=== PATIENT | female | born 1945 | race Caucasian/White ===

== ENCOUNTER 2017-08-03 11:57 | Inpatient (IN) | payer MEDICARE, BC ==
[~2017-08-03 11:57] MED LIST: ETOMIDATE 20 MG INJ; ROCURONIUM 50 MG INJ
[2017-08-03] MEDS: SOD CHLORIDE 0.9% 1,000 ML IV ×2 (12:25→18:20)
[2017-08-03 12:39] LABS: ADD MAN DIFF? NO
[2017-08-03 12:41] LABS: BASOPHIL # 0.1 10^3/ul (0.0-0.1); BASOPHILS % 0.6 % (0.0-2.0); EOSINOPHILS % 0.2 % (0.0-7.0); HEMATOCRIT 40.4 % (37.0-47.0); HEMOGLOBIN 13.4 g/dl (12.0-16.0); LYMPHOCYTES % 35.5 % (15.0-51.0); MEAN CORPUSCULAR HEMOGLOBIN 32.3 pg (29.0-33.0); MEAN CORPUSCULAR HGB CONC 33.2 g/dl (32.0-37.0); MEAN CORPUSCULAR VOLUME 97.3 fl (82.0-101.0); MEAN PLATELET VOLUME 9.8 fl (7.4-10.4); MONOCYTE # 0.6 10^3/ul (0.3-0.9); MONOCYTES % 7.3 % (0.0-11.0); NEUTROPHIL # 4.8 10^3/ul (1.6-7.5); NEUTROPHILS % 56.2 % (39.0-77.0); PLATELET COUNT 300 10^3/UL (140-415); RED BLOOD COUNT 4.15 10^6/ul (4.20-5.40); RED CELL DISTRIBUTION WIDTH 13.3 % (11.5-14.5)
[2017-08-03 12:41] LABS: WHITE BLOOD COUNT 8.5 10^3/ul (4.8-10.8)
[2017-08-03 13:05] LABS: ALANINE AMINOTRANSFERASE 19 IU/L (13-69); ALBUMIN 3.8 g/dl (3.3-4.9); ALBUMIN/GLOBULIN RATIO 1.31; ALKALINE PHOSPHATASE 53 IU/L (42-121); ANION GAP 16 (8-16); ASPARTATE AMINO TRANSFERASE 24 IU/L (15-46); BILIRUBIN,INDIRECT 0.4 mg/dl (0-1.1); BILIRUBIN,TOTAL 0.4 mg/dl (0.2-1.3); BLOOD UREA NITROGEN 19 mg/dl (7-20); CALCIUM 9.2 mg/dl (8.4-10.2); CARBON DIOXIDE 26 mmol/L (21-31); CHLORIDE 103 mmol/L (97-110); CREATININE 0.97 mg/dl (0.44-1.00); GLUCOSE 128 mg/dl (70-220); POTASSIUM 4.3 mmol/L (3.5-5.1); SODIUM 141 mmol/L (135-144); TOTAL PROTEIN 6.7 g/dl (6.1-8.1)
[2017-08-03 13:06] LABS: ACETAMINOPHEN < 10.0 ug/ml (10.0-30.0); ETHANOL < 10.0 mg/dl; SALICYLATE < 1.0 mg/dl (5.0-30.0)
[2017-08-03 13:14] LABS: ADD UMIC NO; UR ASCORBIC ACID NEGATIVE (NEGATIVE); UR BILIRUBIN (Dip) 2+ mg/dL (NEGATIVE); UR BLOOD (Dip) NEGATIVE (NEGATIVE); UR CLARITY CLEAR (CLEAR); UR COLOR YELLOW (YELLOW); UR GLUCOSE (Dip) NEGATIVE (NEGATIVE); UR KETONES (Dip) TRACE mg/dL (NEGATIVE); UR LEUKOCYTE ESTERASE (Dip) NEGATIVE Leu/ul (NEGATIVE); UR NITRITE (Dip) NEGATIVE (NEGATIVE); UR SPECIFIC GRAVITY (Dip) 1.023 (1.003-1.030); UR TOTAL PROTEIN (Dip) NEGATIVE (NEGATIVE); UR UROBILINOGEN (Dip) NEGATIVE (NEGATIVE)
[2017-08-03 13:16] LABS: TROPONIN-I < 0.012 ng/ml (0.000-0.120)
[2017-08-03 13:44] LABS: AMPHETAMINE/METHAMPHETAMINE Negative (NEGATIVE)
[2017-08-03 13:45] LABS: BARBITURATES Negative (NEGATIVE); BENZODIAZEPINES Positive (NEGATIVE); CANNABINOIDS Negative (NEGATIVE); COCAINE Negative (NEGATIVE); OPIATES Positive (NEGATIVE)
[2017-08-03] MEDS: NALOXONE (0.4 MG/ML) INJ IV ×3 (13:54→18:34)
[2017-08-03] MEDS ORDERED: ACETAMINOPHEN 325 MG TAB PO (14:00)
[2017-08-03] MEDS ORDERED: ONDANSETRON 4 MG INJ IV (14:00)
[2017-08-03] MEDS ORDERED: NACL 0.9% 3 ML SYG IV (16:00)
[2017-08-03] MEDS: SOD CHLORIDE 0.45% 1,000 ML IV (16:27)
[2017-08-03 17:48] LABS: Allen Test ACCEPTAB; Arterial Base Excess -5.3 mmol/L (-3.0-3); Arterial COHb 0.7 % (0.0-3.0); Arterial Fraction of Oxyhgb 80.3 % (93.0-99.0); Arterial HCO3 23.7 mmol/L (22.0-26.0); Arterial MetHb 0.2 % (0.0-1.5); Arterial Total Hemglobin 14.2 g/dl (12.0-18.0); Arterial pCO2 61.7 mmhg (35-45); MODE MASK - NRB; Site Left Radial
[2017-08-03] MEDS: IPRATROPIUM (NEB) 0.5 MG/2.5 ML AMP HHN (18:14)
[2017-08-03] MEDS: ALBUTEROL 0.083% (NEB) 2.5 MG/3 ML AMP HHN (18:14)
[2017-08-03] MEDS: ONDANSETRON 4 MG INJ IV (18:16)
[2017-08-03 19:15] LABS: ACETAMINOPHEN < 10.0 ug/ml (10.0-30.0)
[2017-08-03 19:15] LABS: ETHANOL < 10.0 mg/dl; SALICYLATE < 1.0 mg/dl (5.0-30.0)
[2017-08-03] MEDS: PROPOFOL 100 ML IV ×2 (20:00→21:30)
[2017-08-03] MEDS ORDERED: hydrALAzine 20 MG INJ IV (20:00)
[2017-08-03 20:52] LABS: AADO2 Arterial 525.9 mmHg (7.0-24.0); Allen Test ACCEPTAB; Arterial Base Excess -3.7 mmol/L (-3.0-3); Arterial Blood Gas Oxygen Sat 98.9 mmHG (95.0-100.0); Arterial COHb 0.2 % (0.0-3.0); Arterial Fraction of Oxyhgb 98.5 % (93.0-99.0); Arterial HCO3 20.8 mmol/L (22.0-26.0); Arterial MetHb 0.2 % (0.0-1.5); Arterial Total Hemglobin 14.6 g/dl (12.0-18.0); Arterial pCO2 36.1 mmhg (35-45); MODE VENT - AC; Site Right Radial
[2017-08-04] MEDS: SOD CHLORIDE 0.45% 1,000 ML IV ×2 (05:13→18:56)
[2017-08-04 05:16] LABS: ADD MAN DIFF? NO
[2017-08-04 05:42] LABS: ALBUMIN 3.2 g/dl (3.3-4.9); ALBUMIN/GLOBULIN RATIO 1.23; ALKALINE PHOSPHATASE 46 IU/L (42-121); ANION GAP 14 (8-16); ASPARTATE AMINO TRANSFERASE 23 IU/L (15-46); BILIRUBIN,INDIRECT 0.5 mg/dl (0-1.1); BILIRUBIN,TOTAL 0.5 mg/dl (0.2-1.3); CARBON DIOXIDE 24 mmol/L (21-31); CHLORIDE 107 mmol/L (97-110); CREATININE 1.06 mg/dl (0.44-1.00); POTASSIUM 3.9 mmol/L (3.5-5.1); SODIUM 141 mmol/L (135-144); TOTAL PROTEIN 5.8 g/dl (6.1-8.1)
[2017-08-04 06:12] LABS: ALANINE AMINOTRANSFERASE 22 IU/L (13-69); BLOOD UREA NITROGEN 20 mg/dl (7-20); GLUCOSE 129 mg/dl (70-220)
[2017-08-04 06:15] LABS: WHITE BLOOD COUNT 14.8 10^3/ul (4.8-10.8)
[2017-08-04 06:15] LABS: BASOPHILS % 0.2 % (0.0-2.0); HEMATOCRIT 36.5 % (37.0-47.0); HEMOGLOBIN 12.3 g/dl (12.0-16.0); LYMPHOCYTES % 20.1 % (15.0-51.0); MEAN CORPUSCULAR HEMOGLOBIN 32.6 pg (29.0-33.0); MEAN CORPUSCULAR HGB CONC 33.7 g/dl (32.0-37.0); MEAN CORPUSCULAR VOLUME 96.8 fl (82.0-101.0); MEAN PLATELET VOLUME 9.9 fl (7.4-10.4); MONOCYTE # 0.7 10^3/ul (0.3-0.9); MONOCYTES % 4.8 % (0.0-11.0); NEUTROPHILS % 74.6 % (39.0-77.0); PLATELET COUNT 246 10^3/UL (140-415); RED BLOOD COUNT 3.77 10^6/ul (4.20-5.40); RED CELL DISTRIBUTION WIDTH 13.4 % (11.5-14.5)
[2017-08-04] MEDS: PROPOFOL 100 ML IV ×2 (08:00→20:00)
[2017-08-04] MEDS: ENOXAPARIN 30 MG/0.3 ML SYG SC (08:13)
[2017-08-04] MEDS ORDERED: DIPHENHYDRAMINE 50 MG INJ IV (08:30)
[2017-08-04] MEDS: PIPER-TAZO 3.375 GM IV (PMX) 100 ML IVPB ×3 (08:45→22:29)
[2017-08-05] MEDS: PROPOFOL 100 ML IV (03:26)
[2017-08-05 05:31] LABS: ADD MAN DIFF? NO
[2017-08-05 05:41] LABS: BASOPHILS % 0.2 % (0.0-2.0); EOSINOPHILS % 0.1 % (0.0-7.0); HEMATOCRIT 35.4 % (37.0-47.0); HEMOGLOBIN 11.8 g/dl (12.0-16.0); LYMPHOCYTES # 2.4 10^3/ul (0.8-2.9); LYMPHOCYTES % 16.3 % (15.0-51.0); MEAN CORPUSCULAR HEMOGLOBIN 32.5 pg (29.0-33.0); MEAN CORPUSCULAR HGB CONC 33.3 g/dl (32.0-37.0); MEAN CORPUSCULAR VOLUME 97.5 fl (82.0-101.0); MONOCYTE # 1.2 10^3/ul (0.3-0.9); MONOCYTES % 8.2 % (0.0-11.0); NEUTROPHIL # 11.1 10^3/ul (1.6-7.5); NEUTROPHILS % 74.5 % (39.0-77.0); PLATELET COUNT 227 10^3/UL (140-415); RED BLOOD COUNT 3.63 10^6/ul (4.20-5.40); RED CELL DISTRIBUTION WIDTH 13.7 % (11.5-14.5)
[2017-08-05 05:41] LABS: WHITE BLOOD COUNT 14.9 10^3/ul (4.8-10.8)
[2017-08-05 06:11] LABS: ANION GAP 9 (8-16); BLOOD UREA NITROGEN 20 mg/dl (7-20); CALCIUM 8.1 mg/dl (8.4-10.2); CARBON DIOXIDE 28 mmol/L (21-31); CHLORIDE 107 mmol/L (97-110); CREATININE 0.96 mg/dl (0.44-1.00); GLUCOSE 115 mg/dl (70-220); MAGNESIUM 2.3 mg/dl (1.7-2.5); PHOSPHORUS 2.5 mg/dl (2.5-4.9); POTASSIUM 3.4 mmol/L (3.5-5.1); SODIUM 141 mmol/L (135-144)
[2017-08-05] MEDS: PIPER-TAZO 3.375 GM IV (PMX) 100 ML IVPB ×3 (06:31→22:23)
[2017-08-05] MEDS: SOD CHLORIDE 0.45% 1,000 ML IV (08:00)
[2017-08-05] MEDS: ENOXAPARIN 30 MG/0.3 ML SYG SC (08:03)
[2017-08-05 11:07] LABS: AADO2 Arterial 97.1 mmHg (7.0-24.0); Allen Test ACCEPTAB; Arterial Base Excess -0.1 mmol/L (-3.0-3); Arterial Blood Gas Oxygen Sat 94.3 mmHG (95.0-100.0); Arterial COHb 0.3 % (0.0-3.0); Arterial Fraction of Oxyhgb 93.9 % (93.0-99.0); Arterial HCO3 24.5 mmol/L (22.0-26.0); Arterial MetHb 0.1 % (0.0-1.5); Arterial Total Hemglobin 12.7 g/dl (12.0-18.0); Arterial pCO2 39.9 mmhg (35-45); Blood Gas PS 10; MODE VENT - CPAP; Site Right Radial
[2017-08-05] MEDS: NS + KCL 20 MEQ 1,000 ML IV ×2 (13:44→22:23)
[2017-08-05] MEDS ORDERED: VITAMIN A & D 5 GM OINT PACKET TOP (19:40)
[2017-08-06 05:52] LABS: ADD MAN DIFF? NO
[2017-08-06 05:55] LABS: BASOPHILS % 0.2 % (0.0-2.0); EOSINOPHILS # 0.1 10^3/ul (0.0-0.5); EOSINOPHILS % 0.5 % (0.0-7.0); HEMATOCRIT 31.6 % (37.0-47.0); HEMOGLOBIN 10.5 g/dl (12.0-16.0); LYMPHOCYTES # 2.9 10^3/ul (0.8-2.9); LYMPHOCYTES % 21.8 % (15.0-51.0); MEAN CORPUSCULAR HEMOGLOBIN 32.6 pg (29.0-33.0); MEAN CORPUSCULAR HGB CONC 33.2 g/dl (32.0-37.0); MEAN CORPUSCULAR VOLUME 98.1 fl (82.0-101.0); MEAN PLATELET VOLUME 10.1 fl (7.4-10.4); MONOCYTES % 7.7 % (0.0-11.0); NEUTROPHIL # 9.2 10^3/ul (1.6-7.5); NEUTROPHILS % 69.2 % (39.0-77.0); PLATELET COUNT 206 10^3/UL (140-415); RED BLOOD COUNT 3.22 10^6/ul (4.20-5.40); RED CELL DISTRIBUTION WIDTH 13.6 % (11.5-14.5)
[2017-08-06 05:55] LABS: WHITE BLOOD COUNT 13.3 10^3/ul (4.8-10.8)
[2017-08-06] MEDS: PIPER-TAZO 3.375 GM IV (PMX) 100 ML IVPB (05:56)
[2017-08-06 06:17] LABS: ANION GAP 14 (8-16); BLOOD UREA NITROGEN 13 mg/dl (7-20); CALCIUM 7.9 mg/dl (8.4-10.2); CARBON DIOXIDE 23 mmol/L (21-31); CHLORIDE 112 mmol/L (97-110); CREATININE 0.71 mg/dl (0.44-1.00); GLUCOSE 90 mg/dl (70-220); MAGNESIUM 2.6 mg/dl (1.7-2.5); PHOSPHORUS 1.8 mg/dl (2.5-4.9); POTASSIUM 3.6 mmol/L (3.5-5.1); SODIUM 145 mmol/L (135-144)
[2017-08-06] MEDS: ENOXAPARIN 30 MG/0.3 ML SYG SC (08:50)
[2017-08-06] MEDS: POTASSIUM PHOSPHATE 40 MEQ in SOD CHLORIDE 0.9% 250 ML IVPB (09:30)
[2017-08-06] MEDS: SUCRALFATE 1 GM TAB PO (12:58)
[2017-08-06] MEDS: PANTOPRAZOLE (EC) 40 MG TAB PO (12:58)
[2017-08-06] MEDS: CALCIUM CARBONATE 500 MG CHEW TAB PO ×2 (12:58→18:42)
[2017-08-06] MEDS: BUPROPION (SR) 100 MG TAB PO (18:42)
[2017-08-06] MEDS: SENNA TAB PO (20:19)
[2017-08-06] MEDS: DOCUSATE SODIUM 100 MG CAP PO (20:19)
[2017-08-06] MEDS: ATORVASTATIN 10 MG TAB PO (20:19)
[2017-08-06] MEDS: CALCIUM/VITAMIN D (500/200) TAB PO (20:19)
[2017-08-06] MEDS: LORAZEPAM 1 MG TAB PO (20:25)
[2017-08-07] MEDS ORDERED: VITAMIN A & D 5 GM OINT PACKET TOP (00:35)
[2017-08-07 06:03] LABS: ADD MAN DIFF? NO
[2017-08-07 06:06] LABS: WHITE BLOOD COUNT 9.8 10^3/ul (4.8-10.8)
[2017-08-07 06:06] LABS: BASOPHILS % 0.3 % (0.0-2.0); EOSINOPHILS # 0.2 10^3/ul (0.0-0.5); EOSINOPHILS % 1.6 % (0.0-7.0); HEMATOCRIT 32.7 % (37.0-47.0); LYMPHOCYTES # 3.1 10^3/ul (0.8-2.9); LYMPHOCYTES % 32.1 % (15.0-51.0); MEAN CORPUSCULAR HEMOGLOBIN 32.2 pg (29.0-33.0); MEAN CORPUSCULAR HGB CONC 33.6 g/dl (32.0-37.0); MEAN CORPUSCULAR VOLUME 95.6 fl (82.0-101.0); MONOCYTE # 1.1 10^3/ul (0.3-0.9); MONOCYTES % 10.7 % (0.0-11.0); NEUTROPHIL # 5.4 10^3/ul (1.6-7.5); NEUTROPHILS % 54.9 % (39.0-77.0); PLATELET COUNT 222 10^3/UL (140-415); RED BLOOD COUNT 3.42 10^6/ul (4.20-5.40); RED CELL DISTRIBUTION WIDTH 13.5 % (11.5-14.5)
[2017-08-07 06:32] LABS: ANION GAP 12 (8-16); BLOOD UREA NITROGEN 8 mg/dl (7-20); CALCIUM 8.6 mg/dl (8.4-10.2); CARBON DIOXIDE 26 mmol/L (21-31); CHLORIDE 108 mmol/L (97-110); CREATININE 0.64 mg/dl (0.44-1.00); GLUCOSE 100 mg/dl (70-220); MAGNESIUM 2.2 mg/dl (1.7-2.5); PHOSPHORUS 2.6 mg/dl (2.5-4.9); POTASSIUM 3.7 mmol/L (3.5-5.1); SODIUM 142 mmol/L (135-144)
[2017-08-07] MEDS: PANTOPRAZOLE (EC) 40 MG TAB PO (06:54)
[2017-08-07] MEDS ORDERED: NON-FORMULARY/PATIENT OWN MED (Dexlansoprazole (Dexilant) 60 MG) PO (09:00)
[2017-08-07] MEDS ORDERED: NON-FORMULARY/PATIENT OWN MED (Linaclotide (Linzess) 290 MCG) PO (09:00)
[2017-08-07] MEDS: CHOLECALCIFEROL 2,000 UNIT CAP PO (09:08)
[2017-08-07] MEDS: DOCUSATE SODIUM 100 MG CAP PO ×2 (09:08→20:18)
[2017-08-07] MEDS: MULTIVITAMINS THERAPEUTIC TAB PO (09:08)
[2017-08-07] MEDS: ASPIRIN (EC) 81 MG TAB PO (09:09)
[2017-08-07] MEDS: CALCIUM/VITAMIN D (500/200) TAB PO ×2 (09:09→20:18)
[2017-08-07] MEDS: SENNA TAB PO ×2 (09:09→20:18)
[2017-08-07] MEDS: CALCIUM CARBONATE 500 MG CHEW TAB PO ×3 (09:09→18:41)
[2017-08-07] MEDS: BUPROPION (SR) 100 MG TAB PO (09:09)
[2017-08-07] MEDS: BENAZEPRIL 40 MG TAB PO (09:10)
[2017-08-07] MEDS: AMLODIPINE 10 MG TAB PO (09:11)
[2017-08-07] MEDS: ENOXAPARIN 30 MG/0.3 ML SYG SC (09:14)
[2017-08-07] MEDS: CLOPIDOGREL 75 MG TAB PO (09:22)
[2017-08-07] MEDS: [UNRECOGNIZED DRUG - REMARK] XX ×2 (13:30→21:02)
[2017-08-07] MEDS: GUAIFENESIN/DM 5ML CUP PO (18:39)
[2017-08-07] MEDS: ATORVASTATIN 10 MG TAB PO (20:18)
[2017-08-07] MEDS: LORAZEPAM 1 MG TAB PO (22:15)
[2017-08-08] MEDS: [UNRECOGNIZED DRUG - REMARK] XX (05:30)
[2017-08-08] MEDS: PANTOPRAZOLE (EC) 40 MG TAB PO (06:02)
[2017-08-08] MEDS: CALCIUM/VITAMIN D (500/200) TAB PO ×2 (08:37→20:23)
[2017-08-08] MEDS: CALCIUM CARBONATE 500 MG CHEW TAB PO ×3 (08:37→19:55)
[2017-08-08] MEDS: ENOXAPARIN 30 MG/0.3 ML SYG SC (08:37)
[2017-08-08] MEDS: DOCUSATE SODIUM 100 MG CAP PO ×2 (08:38→20:23)
[2017-08-08] MEDS: BUPROPION (SR) 100 MG TAB PO (08:38)
[2017-08-08] MEDS: MULTIVITAMINS THERAPEUTIC TAB PO (08:38)
[2017-08-08] MEDS: CLOPIDOGREL 75 MG TAB PO (08:38)
[2017-08-08] MEDS: ASPIRIN (EC) 81 MG TAB PO (08:39)
[2017-08-08] MEDS: CHOLECALCIFEROL 2,000 UNIT CAP PO (08:39)
[2017-08-08] MEDS: SENNA TAB PO ×2 (08:39→20:23)
[2017-08-08] MEDS: AMLODIPINE 10 MG TAB PO (08:39)
[2017-08-08] MEDS: BENAZEPRIL 40 MG TAB PO (08:40)
[2017-08-08] MEDS: GUAIFENESIN/DM 5ML CUP PO ×3 (09:17→21:44)
[2017-08-08] MEDS: ATORVASTATIN 10 MG TAB PO (20:23)
[2017-08-08] MEDS: LORAZEPAM 1 MG TAB PO (21:44)
[2017-08-09] MEDS ORDERED: ALBUTEROL 0.083% (NEB) 2.5 MG/3 ML AMP HHN
[2017-08-09] MEDS: ALBUTEROL 0.083% (NEB) 2.5 MG/3 ML AMP HHN ×4 (01:51→20:06)
[2017-08-09] MEDS: PANTOPRAZOLE (EC) 40 MG TAB PO (05:42)
[2017-08-09] MEDS: DOCUSATE SODIUM 100 MG CAP PO ×2 (10:32→20:51)
[2017-08-09] MEDS: CALCIUM CARBONATE 500 MG CHEW TAB PO ×3 (10:33→18:46)
[2017-08-09] MEDS: CLOPIDOGREL 75 MG TAB PO (10:33)
[2017-08-09] MEDS: CALCIUM/VITAMIN D (500/200) TAB PO ×2 (10:33→20:51)
[2017-08-09] MEDS: BUPROPION (SR) 100 MG TAB PO (10:33)
[2017-08-09] MEDS: SENNA TAB PO ×2 (10:34→20:51)
[2017-08-09] MEDS: MULTIVITAMINS THERAPEUTIC TAB PO (10:34)
[2017-08-09] MEDS: ASPIRIN (EC) 81 MG TAB PO (10:34)
[2017-08-09] MEDS: BENAZEPRIL 40 MG TAB PO (10:34)
[2017-08-09] MEDS: AMLODIPINE 10 MG TAB PO (10:36)
[2017-08-09] MEDS: ENOXAPARIN 30 MG/0.3 ML SYG SC (10:37)
[2017-08-09] MEDS: CHOLECALCIFEROL 2,000 UNIT CAP PO (10:43)
[2017-08-09] MEDS: ATORVASTATIN 10 MG TAB PO (20:51)
[2017-08-09] MEDS: LORAZEPAM 1 MG TAB PO (21:51)
[2017-08-10] MEDS: ALBUTEROL 0.083% (NEB) 2.5 MG/3 ML AMP HHN ×4 (03:10→20:09)
[2017-08-10] MEDS: PANTOPRAZOLE (EC) 40 MG TAB PO (06:43)
[2017-08-10] MEDS: BUPROPION (SR) 100 MG TAB PO (08:47)
[2017-08-10] MEDS: CALCIUM CARBONATE 500 MG CHEW TAB PO ×3 (08:47→17:50)
[2017-08-10] MEDS: CALCIUM/VITAMIN D (500/200) TAB PO ×2 (08:47→20:30)
[2017-08-10] MEDS: CHOLECALCIFEROL 2,000 UNIT CAP PO (08:48)
[2017-08-10] MEDS: DOCUSATE SODIUM 100 MG CAP PO ×2 (08:48→20:31)
[2017-08-10] MEDS: MULTIVITAMINS THERAPEUTIC TAB PO (08:48)
[2017-08-10] MEDS: SENNA TAB PO ×2 (08:48→20:31)
[2017-08-10] MEDS: BENAZEPRIL 40 MG TAB PO (08:48)
[2017-08-10] MEDS: ASPIRIN (EC) 81 MG TAB PO (08:48)
[2017-08-10] MEDS: AMLODIPINE 10 MG TAB PO (08:49)
[2017-08-10] MEDS: CLOPIDOGREL 75 MG TAB PO (08:49)
[2017-08-10] MEDS: ENOXAPARIN 30 MG/0.3 ML SYG SC (08:50)
[2017-08-10] MEDS: ATORVASTATIN 10 MG TAB PO (20:31)
[2017-08-10] MEDS: LORAZEPAM 1 MG TAB PO (22:16)
[2017-08-11] MEDS: ALBUTEROL 0.083% (NEB) 2.5 MG/3 ML AMP HHN ×4 (01:48→20:09)
[2017-08-11 05:35] LABS: AADO2 Arterial 50.2 mmHg (7.0-24.0); Arterial Base Excess 8.2 mmol/L (-3.0-3); Arterial Blood Gas Oxygen Sat 85.2 mmHG (95.0-100.0); Arterial COHb 0.7 % (0.0-3.0); Arterial Fraction of Oxyhgb 84.4 % (93.0-99.0); Arterial HCO3 32.4 mmol/L (22.0-26.0); Arterial MetHb 0.2 % (0.0-1.5); Arterial Total Hemglobin 13.8 g/dl (12.0-18.0); Arterial pCO2 43.4 mmhg (35-45); MODE ROOM AIR; Site LB
[2017-08-11 05:36] LABS: ADD MAN DIFF? NO
[2017-08-11 05:54] LABS: BASOPHILS % 0.2 % (0.0-2.0); EOSINOPHILS # 0.1 10^3/ul (0.0-0.5); EOSINOPHILS % 1.1 % (0.0-7.0); HEMATOCRIT 33.2 % (37.0-47.0); HEMOGLOBIN 11.2 g/dl (12.0-16.0); LYMPHOCYTES # 3.3 10^3/ul (0.8-2.9); LYMPHOCYTES % 37.4 % (15.0-51.0); MEAN CORPUSCULAR HEMOGLOBIN 32.7 pg (29.0-33.0); MEAN CORPUSCULAR HGB CONC 33.7 g/dl (32.0-37.0); MEAN CORPUSCULAR VOLUME 97.1 fl (82.0-101.0); MEAN PLATELET VOLUME 9.7 fl (7.4-10.4); MONOCYTE # 0.9 10^3/ul (0.3-0.9); MONOCYTES % 9.7 % (0.0-11.0); NEUTROPHIL # 4.5 10^3/ul (1.6-7.5); NEUTROPHILS % 51.1 % (39.0-77.0); PLATELET COUNT 305 10^3/UL (140-415); RED BLOOD COUNT 3.42 10^6/ul (4.20-5.40); RED CELL DISTRIBUTION WIDTH 13.4 % (11.5-14.5)
[2017-08-11 05:54] LABS: WHITE BLOOD COUNT 8.8 10^3/ul (4.8-10.8)
[2017-08-11 06:16] LABS: ANION GAP 10 (8-16); BLOOD UREA NITROGEN 7 mg/dl (7-20); CALCIUM 9.3 mg/dl (8.4-10.2); CARBON DIOXIDE 33 mmol/L (21-31); CHLORIDE 101 mmol/L (97-110); CREATININE 0.71 mg/dl (0.44-1.00); GLUCOSE 108 mg/dl (70-220); MAGNESIUM 1.7 mg/dl (1.7-2.5); POTASSIUM 3.1 mmol/L (3.5-5.1); SODIUM 141 mmol/L (135-144)
[2017-08-11] MEDS: PANTOPRAZOLE (EC) 40 MG TAB PO (06:43)
[2017-08-11] MEDS: AMLODIPINE 10 MG TAB PO (09:42)
[2017-08-11] MEDS: SENNA TAB PO ×2 (09:43→20:40)
[2017-08-11] MEDS: ASPIRIN (EC) 81 MG TAB PO (09:43)
[2017-08-11] MEDS: CALCIUM CARBONATE 500 MG CHEW TAB PO ×3 (09:43→17:58)
[2017-08-11] MEDS: MULTIVITAMINS THERAPEUTIC TAB PO (09:43)
[2017-08-11] MEDS: BENAZEPRIL 40 MG TAB PO (09:43)
[2017-08-11] MEDS: CHOLECALCIFEROL 2,000 UNIT CAP PO (09:43)
[2017-08-11] MEDS: CLOPIDOGREL 75 MG TAB PO (09:43)
[2017-08-11] MEDS: BUPROPION (SR) 100 MG TAB PO (09:43)
[2017-08-11] MEDS: CALCIUM/VITAMIN D (500/200) TAB PO ×2 (09:43→20:40)
[2017-08-11] MEDS: DOCUSATE SODIUM 100 MG CAP PO ×2 (09:43→20:40)
[2017-08-11] MEDS: ENOXAPARIN 30 MG/0.3 ML SYG SC (09:45)
[2017-08-11] MEDS: POTASSIUM CHLORIDE (SR) 20 MEQ TAB PO (16:22)
[2017-08-11] MEDS: FUROSEMIDE 20 MG INJ IV (16:22)
[2017-08-11] MEDS: ATORVASTATIN 10 MG TAB PO (20:40)
[2017-08-11] MEDS: LORAZEPAM 1 MG TAB PO (22:08)
[2017-08-12] MEDS: ALBUTEROL 0.083% (NEB) 2.5 MG/3 ML AMP HHN ×4 (01:58→20:11)
[2017-08-12] MEDS: PANTOPRAZOLE (EC) 40 MG TAB PO (05:40)
[2017-08-12 06:49] LABS: ANION GAP 8 (8-16); BLOOD UREA NITROGEN 8 mg/dl (7-20); CALCIUM 9.7 mg/dl (8.4-10.2); CARBON DIOXIDE 36 mmol/L (21-31); CHLORIDE 100 mmol/L (97-110); CREATININE 0.77 mg/dl (0.44-1.00); GLUCOSE 105 mg/dl (70-220); POTASSIUM 3.4 mmol/L (3.5-5.1); SODIUM 141 mmol/L (135-144)
[2017-08-12 07:51] LABS: Arterial Base Excess 8.2 mmol/L (-3.0-3); Arterial Blood Gas Oxygen Sat 93.9 mmHG (95.0-100.0); Arterial COHb 0.1 % (0.0-3.0); Arterial Fraction of Oxyhgb 93.7 % (93.0-99.0); Arterial MetHb 0.1 % (0.0-1.5); Arterial Total Hemglobin 12.5 g/dl (12.0-18.0); Arterial pCO2 46.6 mmhg (35-45); MODE NASAL CANNULA; Site Right Brachial
[2017-08-12] MEDS: CALCIUM CARBONATE 500 MG CHEW TAB PO ×3 (08:20→19:55)
[2017-08-12] MEDS: DOCUSATE SODIUM 100 MG CAP PO ×2 (08:21→20:00)
[2017-08-12] MEDS: BENAZEPRIL 40 MG TAB PO (08:22)
[2017-08-12] MEDS: ASPIRIN (EC) 81 MG TAB PO (08:22)
[2017-08-12] MEDS: POTASSIUM CHLORIDE (SR) 8 MEQ CAP PO (08:23)
[2017-08-12] MEDS: CHOLECALCIFEROL 2,000 UNIT CAP PO (08:23)
[2017-08-12] MEDS: CLOPIDOGREL 75 MG TAB PO (08:23)
[2017-08-12] MEDS: CALCIUM/VITAMIN D (500/200) TAB PO ×2 (08:23→20:00)
[2017-08-12] MEDS: AMLODIPINE 10 MG TAB PO (08:23)
[2017-08-12] MEDS: BUPROPION (SR) 100 MG TAB PO (08:23)
[2017-08-12] MEDS: MULTIVITAMINS THERAPEUTIC TAB PO (08:23)
[2017-08-12] MEDS: SENNA TAB PO ×2 (08:23→20:00)
[2017-08-12] MEDS: ENOXAPARIN 30 MG/0.3 ML SYG SC (08:29)
[2017-08-12] MEDS ORDERED: HYDROCODONE/APAP (5/325) TAB PO (15:00)
[2017-08-12] MEDS: SOD CHLORIDE 0.9% 100 ML (19:16)
[2017-08-12] MEDS: IOHEXOL 300MG/ML 150 ML BTL (19:16)
[2017-08-12] MEDS: ATORVASTATIN 10 MG TAB PO (20:00)
[2017-08-12] MEDS: LORAZEPAM 1 MG TAB PO (22:13)
[2017-08-13] MEDS: ALBUTEROL 0.083% (NEB) 2.5 MG/3 ML AMP HHN ×4 (01:51→20:57)
[2017-08-13] MEDS: PANTOPRAZOLE (EC) 40 MG TAB PO (05:37)
[2017-08-13 06:04] LABS: ADD MAN DIFF? NO
[2017-08-13 06:05] LABS: BASOPHILS % 0.4 % (0.0-2.0); EOSINOPHILS # 0.1 10^3/ul (0.0-0.5); EOSINOPHILS % 1.2 % (0.0-7.0); HEMATOCRIT 33.8 % (37.0-47.0); HEMOGLOBIN 11.3 g/dl (12.0-16.0); LYMPHOCYTES # 2.8 10^3/ul (0.8-2.9); LYMPHOCYTES % 34.6 % (15.0-51.0); MEAN CORPUSCULAR HEMOGLOBIN 32.8 pg (29.0-33.0); MEAN CORPUSCULAR HGB CONC 33.4 g/dl (32.0-37.0); MEAN PLATELET VOLUME 9.6 fl (7.4-10.4); MONOCYTE # 0.7 10^3/ul (0.3-0.9); MONOCYTES % 8.6 % (0.0-11.0); NEUTROPHIL # 4.5 10^3/ul (1.6-7.5); PLATELET COUNT 357 10^3/UL (140-415); RED BLOOD COUNT 3.45 10^6/ul (4.20-5.40); RED CELL DISTRIBUTION WIDTH 13.4 % (11.5-14.5)
[2017-08-13 06:05] LABS: WHITE BLOOD COUNT 8.1 10^3/ul (4.8-10.8)
[2017-08-13 06:29] LABS: ANION GAP 9 (8-16); BLOOD UREA NITROGEN 10 mg/dl (7-20); CALCIUM 9.5 mg/dl (8.4-10.2); CARBON DIOXIDE 32 mmol/L (21-31); CHLORIDE 103 mmol/L (97-110); CREATININE 0.83 mg/dl (0.44-1.00); GLUCOSE 110 mg/dl (70-220); MAGNESIUM 1.8 mg/dl (1.7-2.5); POTASSIUM 3.7 mmol/L (3.5-5.1); SODIUM 140 mmol/L (135-144)
[2017-08-13] MEDS: PIPER-TAZO 3.375 GM IV (PMX) 100 ML IVPB ×3 (09:43→22:22)
[2017-08-13] MEDS: CALCIUM CARBONATE 500 MG CHEW TAB PO ×3 (09:43→18:46)
[2017-08-13] MEDS: MULTIVITAMINS THERAPEUTIC TAB PO (09:43)
[2017-08-13] MEDS: CHOLECALCIFEROL 2,000 UNIT CAP PO (09:44)
[2017-08-13] MEDS: BUPROPION (SR) 100 MG TAB PO (09:44)
[2017-08-13] MEDS: SENNA TAB PO ×2 (09:44→20:40)
[2017-08-13] MEDS: DOCUSATE SODIUM 100 MG CAP PO ×2 (09:44→20:40)
[2017-08-13] MEDS: CALCIUM/VITAMIN D (500/200) TAB PO ×2 (09:44→20:40)
[2017-08-13] MEDS: ASPIRIN (EC) 81 MG TAB PO (09:44)
[2017-08-13] MEDS: CLOPIDOGREL 75 MG TAB PO (09:45)
[2017-08-13] MEDS: AMLODIPINE 10 MG TAB PO (09:45)
[2017-08-13] MEDS: BENAZEPRIL 40 MG TAB PO (09:45)
[2017-08-13] MEDS: ENOXAPARIN 30 MG/0.3 ML SYG SC (09:47)
[2017-08-13 10:31] LABS: AADO2 Arterial 20.9 mmHg (7.0-24.0); Allen Test ACCEPTAB; Arterial Base Excess 3.4 mmol/L (-3.0-3); Arterial HCO3 27.3 mmol/L (22.0-26.0); Arterial pCO2 39.1 mmhg (35-45); MODE ROOM AIR; Site Right Radial
[2017-08-13] MEDS: ONDANSETRON 4 MG INJ IV (10:46)
[2017-08-13] MEDS: ATORVASTATIN 10 MG TAB PO (20:40)
[2017-08-13] MEDS: LORAZEPAM 1 MG TAB PO (22:23)
[2017-08-14] MEDS: ALBUTEROL 0.083% (NEB) 2.5 MG/3 ML AMP HHN ×4 (01:08→20:03)
[2017-08-14] MEDS: PIPER-TAZO 3.375 GM IV (PMX) 100 ML IVPB ×3 (05:39→21:50)
[2017-08-14] MEDS: PANTOPRAZOLE (EC) 40 MG TAB PO (05:39)
[2017-08-14 06:17] LABS: ADD MAN DIFF? NO
[2017-08-14 06:29] LABS: BASOPHILS % 0.5 % (0.0-2.0); EOSINOPHILS # 0.1 10^3/ul (0.0-0.5); EOSINOPHILS % 1.3 % (0.0-7.0); HEMATOCRIT 34.1 % (37.0-47.0); HEMOGLOBIN 11.1 g/dl (12.0-16.0); LYMPHOCYTES # 2.1 10^3/ul (0.8-2.9); LYMPHOCYTES % 27.6 % (15.0-51.0); MEAN CORPUSCULAR HGB CONC 32.6 g/dl (32.0-37.0); MEAN CORPUSCULAR VOLUME 98.3 fl (82.0-101.0); MEAN PLATELET VOLUME 9.8 fl (7.4-10.4); MONOCYTE # 0.7 10^3/ul (0.3-0.9); MONOCYTES % 8.9 % (0.0-11.0); NEUTROPHIL # 4.6 10^3/ul (1.6-7.5); NEUTROPHILS % 61.4 % (39.0-77.0); PLATELET COUNT 378 10^3/UL (140-415); RED BLOOD COUNT 3.47 10^6/ul (4.20-5.40); RED CELL DISTRIBUTION WIDTH 13.2 % (11.5-14.5)
[2017-08-14 06:29] LABS: WHITE BLOOD COUNT 7.5 10^3/ul (4.8-10.8)
[2017-08-14 06:50] LABS: ANION GAP 12 (8-16); BLOOD UREA NITROGEN 12 mg/dl (7-20); CALCIUM 9.4 mg/dl (8.4-10.2); CARBON DIOXIDE 32 mmol/L (21-31); CHLORIDE 103 mmol/L (97-110); CREATININE 0.99 mg/dl (0.44-1.00); GLUCOSE 105 mg/dl (70-220); POTASSIUM 3.9 mmol/L (3.5-5.1); SODIUM 143 mmol/L (135-144)
[2017-08-14] MEDS: BENAZEPRIL 40 MG TAB PO (10:07)
[2017-08-14] MEDS: CHOLECALCIFEROL 2,000 UNIT CAP PO (10:07)
[2017-08-14] MEDS: AMLODIPINE 10 MG TAB PO (10:07)
[2017-08-14] MEDS: ASPIRIN (EC) 81 MG TAB PO (10:08)
[2017-08-14] MEDS: SENNA TAB PO ×2 (10:08→20:27)
[2017-08-14] MEDS: CALCIUM CARBONATE 500 MG CHEW TAB PO ×3 (10:08→18:21)
[2017-08-14] MEDS: BUPROPION (SR) 100 MG TAB PO (10:08)
[2017-08-14] MEDS: CALCIUM/VITAMIN D (500/200) TAB PO ×2 (10:08→20:27)
[2017-08-14] MEDS: MULTIVITAMINS THERAPEUTIC TAB PO (10:08)
[2017-08-14] MEDS: DOCUSATE SODIUM 100 MG CAP PO ×2 (10:08→20:27)
[2017-08-14] MEDS: CLOPIDOGREL 75 MG TAB PO (10:09)
[2017-08-14] MEDS: ENOXAPARIN 30 MG/0.3 ML SYG SC (10:14)
[2017-08-14] MEDS: ATORVASTATIN 10 MG TAB PO (20:27)
[2017-08-14] MEDS: GUAIFENESIN/DM 5ML CUP PO (21:49)
[2017-08-14] MEDS: LORAZEPAM 1 MG TAB PO (21:49)
[2017-08-15] MEDS: ALBUTEROL 0.083% (NEB) 2.5 MG/3 ML AMP HHN ×2 (02:05→08:00)
[2017-08-15] MEDS: PIPER-TAZO 3.375 GM IV (PMX) 100 ML IVPB (05:25)
[2017-08-15] MEDS: PANTOPRAZOLE (EC) 40 MG TAB PO (05:26)
[2017-08-15] MEDS: MULTIVITAMINS THERAPEUTIC TAB PO (08:51)
[2017-08-15] MEDS: CALCIUM CARBONATE 500 MG CHEW TAB PO (08:51)
[2017-08-15] MEDS: DOCUSATE SODIUM 100 MG CAP PO (08:51)
[2017-08-15] MEDS: ASPIRIN (EC) 81 MG TAB PO (08:51)
[2017-08-15] MEDS: CLOPIDOGREL 75 MG TAB PO (08:51)
[2017-08-15] MEDS: BUPROPION (SR) 100 MG TAB PO (08:51)
[2017-08-15] MEDS: SENNA TAB PO (08:52)
[2017-08-15] MEDS: BENAZEPRIL 40 MG TAB PO (08:52)
[2017-08-15] MEDS: CALCIUM/VITAMIN D (500/200) TAB PO (08:52)
[2017-08-15] MEDS: CHOLECALCIFEROL 2,000 UNIT CAP PO (08:52)
[2017-08-15] MEDS: AMLODIPINE 10 MG TAB PO (08:53)
[2017-08-15] MEDS: ENOXAPARIN 30 MG/0.3 ML SYG SC (08:54)
[2017-08-15] MEDS: GUAIFENESIN/DM 5ML CUP PO (08:55)
== END 2017-08-15 10:20 | disposition home or self-care (01) | DRG 917 ==
LOC: MS2 08-11 20:05 → E/R 11:57 → MS2 08-05 18:30 → ICU 18:52
PROVIDERS: Internal Medicine
PROC: 0BH17EZ Insertion of Endotracheal Airway into Trachea, Via Natural or Artificial Opening (ICD-10-PCS; 2017-08-03)
PROC: 5A1945Z Respiratory Ventilation, 24-96 Consecutive Hours (ICD-10-PCS; principal; 2017-08-04)
DX: T42.4X2A Poisoning by benzodiazepines, intentional self-harm, initial encounter (principal); J96.91 Respiratory failure, unspecified with hypoxia; J69.0 Pneumonitis due to inhalation of food and vomit; G92 Toxic encephalopathy; K57.92 Diverticulitis of intestine, part unspecified, without perforation or abscess without bleeding; E87.2 Acidosis; T40.2X2A Poisoning by other opioids, intentional self-harm, initial encounter; E87.6 Hypokalemia; F17.200 Nicotine dependence, unspecified, uncomplicated; F32.9 Major depressive disorder, single episode, unspecified; I25.10 Atherosclerotic heart disease of native coronary artery without angina pectoris; I10 Essential (primary) hypertension
CPT/HCPCS: 31500; 36415; 36600; 70450; 71045; 71046; 74178; 80048; 80053; 80307; 81003; 82803; 82962; 83735; 84100; 84484; 85025; 87081; 92526; 92610; 93005; 94002; 94003; 94640; 94664; 94770; 96374; 96376; 99291-25

== ENCOUNTER 2018-07-13 23:19 | Emergency (ER) | payer BC, MEDICARE ==
[2018-07-13 23:54] LABS: ADD MAN DIFF? NO
[2018-07-13 23:56] LABS: WHITE BLOOD COUNT 9.9 10^3/ul (4.8-10.8)
[2018-07-13 23:56] LABS: ABNORMAL IP MESSAGE 1; BASOPHILS % 0.4 % (0.0-2.0); EOSINOPHILS # 0.2 10^3/ul (0.0-0.5); EOSINOPHILS % 2.4 % (0.0-7.0); HEMATOCRIT 43.2 % (37.0-47.0); HEMOGLOBIN 14.5 g/dl (12.0-16.0); LYMPHOCYTES # 5.3 10^3/ul (0.8-2.9); LYMPHOCYTES % 53.5 % (15.0-51.0); MEAN CORPUSCULAR HGB CONC 33.6 g/dl (32.0-37.0); MEAN CORPUSCULAR VOLUME 95.4 fl (82.0-101.0); MEAN PLATELET VOLUME 9.5 fl (7.4-10.4); MONOCYTES % 9.6 % (0.0-11.0); NEUTROPHIL # 3.4 10^3/ul (1.6-7.5); PLATELET COUNT 253 10^3/UL (140-415); RED BLOOD COUNT 4.53 10^6/ul (4.20-5.40); RED CELL DISTRIBUTION WIDTH 13.6 % (11.5-14.5)
[2018-07-13 23:58] LABS: POSITIVE DIFF @See below
[2018-07-14] MEDS: ONDANSETRON 4 MG INJ IV (00:18)
[2018-07-14] MEDS: morphine 4 MG/ML VIAL IV (00:18)
[2018-07-14 00:19] LABS: ALANINE AMINOTRANSFERASE 18 IU/L (13-69); ALBUMIN 4.4 g/dl (3.3-4.9); ALBUMIN/GLOBULIN RATIO 1.51; ALKALINE PHOSPHATASE 66 IU/L (42-121); ANION GAP 10 (5-13); ASPARTATE AMINO TRANSFERASE 24 IU/L (15-46); BILIRUBIN,INDIRECT 0.3 mg/dl (0-1.1); BILIRUBIN,TOTAL 0.3 mg/dl (0.2-1.3); BLOOD UREA NITROGEN 34 mg/dl (7-20); CALCIUM 10.6 mg/dl (8.4-10.2); CARBON DIOXIDE 24 mmol/L (21-31); CHLORIDE 104 mmol/L (97-110); CREATININE 1.15 mg/dl (0.44-1.00); GLUCOSE 121 mg/dl (70-220); LIPASE 209 U/L (23-300); POTASSIUM 4.5 mmol/L (3.5-5.1); SODIUM 138 mmol/L (135-144); TOTAL PROTEIN 7.3 g/dl (6.1-8.1)
[2018-07-14] MEDS: SOD CHLORIDE 0.9% 500 ML IV (00:25)
[2018-07-14 02:19] LABS: ADD UMIC NO; UR ASCORBIC ACID NEGATIVE (NEGATIVE); UR BILIRUBIN (Dip) NEGATIVE (NEGATIVE); UR BLOOD (Dip) NEGATIVE (NEGATIVE); UR CLARITY CLEAR (CLEAR); UR COLOR STRAW (YELLOW); UR GLUCOSE (Dip) NEGATIVE (NEGATIVE); UR KETONES (Dip) NEGATIVE (NEGATIVE); UR LEUKOCYTE ESTERASE (Dip) NEGATIVE Leu/ul (NEGATIVE); UR NITRITE (Dip) NEGATIVE (NEGATIVE); UR SPECIFIC GRAVITY (Dip) 1.008 (1.003-1.030); UR TOTAL PROTEIN (Dip) NEGATIVE (NEGATIVE); UR UROBILINOGEN (Dip) NEGATIVE (NEGATIVE)
== END 2018-07-14 04:11 | disposition home or self-care (01) ==
LOC: E/R 23:19
DX: R10.31 Right lower quadrant pain (principal); J44.9 Chronic obstructive pulmonary disease, unspecified; F17.210 Nicotine dependence, cigarettes, uncomplicated; Z79.01 Long term (current) use of anticoagulants; Z79.82 Long term (current) use of aspirin; Z95.1 Presence of aortocoronary bypass graft
CPT/HCPCS: 36415; 74176; 80053; 81003; 83690; 85025; 99285-25